=== PATIENT | male | born 1950 | race Caucasian/White ===

== ENCOUNTER → 2017-11-01 | Outpatient (CLI) | payer MEDICARE ==
--- NOTE | 2017-11-01 13:21 | XR ---
EXAMINATION TYPE: XR knee limited RT DATE OF EXAM: 11/01/2017 COMPARISON: NONE HISTORY: 67-year-old male with right knee pain TECHNIQUE: 2 views FINDINGS: Minimal nonspecific soft tissue calcifications are present along the anteromedial aspect of the knee. No acute fracture, subluxation, or dislocation. There is a small knee joint effusion noted. IMPRESSION: No acute osseous abnormality seen. There is a small knee joint effusion which is nonspeci fic. If concern for internal derangement, MRI can be considered.
== END | disposition home or self-care (01) ==
LOC: RADXRYALE 09:30
PROVIDERS: ATTEND Internal Medicine
DX: M25.462 Effusion, left knee (principal)

== ENCOUNTER → 2017-11-16 | Outpatient (CLI) | payer MEDICARE ==
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
== END | disposition home or self-care (01) ==
LOC: RADXRYALE 09:45
PROVIDERS: ATTEND Orthopaedic Surgery Sports Medicine
DX: Z18.10 Retained metal fragments, unspecified (principal); Z87.828 Personal history of other (healed) physical injury and trauma
CPT/HCPCS: 74019

== ENCOUNTER 2018-09-12 08:36 | Emergency (ER) | payer MEDICARE ==
[2018-09-12 08:42] VITALS: TEMP 97.1
[2018-09-12] MEDS ORDERED: KETOROLAC 60 MG/2 ML VIAL IM STA (08:59)
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
--- NOTE | 2018-09-12 10:04 | US ---
EXAMINATION TYPE: US venous doppler duplex LE LT DATE OF EXAM: 09/12/2018 9:52 AM COMPARISON: NONE CLINICAL HISTORY: Pain. Pain in left leg SIDE PERFORMED: Left TECHNIQUE: The lower extremity deep venous system is examined utilizing real time linear array sonog ivana with graded compression, doppler sonography and color-flow sonography. VESSELS IMAGED: External Iliac Vein (EIV) Common Femoral Vein Deep Femoral Vein Greater Saphenous Vein * Femoral Vein Popliteal Vein Small Saphenous Vein * Proximal Calf Veins (* superficial vessels) Left Leg: Negative for DVT IMPRESSION: 1. No diagnostic evidence of DVT as visualized.
[2018-09-12 10:29] VITALS: BP 148/72; PULSE 78; RESP 18
== END 2018-09-12 10:28 | disposition home or self-care (01) ==
LOC: EC 08:36
DX: S39.012A Strain of muscle, fascia and tendon of lower back, initial encounter (principal); M54.16 Radiculopathy, lumbar region; E78.5 Hyperlipidemia, unspecified; I10 Essential (primary) hypertension; Z85.828 Personal history of other malignant neoplasm of skin; Z79.891 Long term (current) use of opiate analgesic; Z79.1 Long term (current) use of non-steroidal anti-inflammatories (NSAID); Z79.899 Other long term (current) drug therapy
CPT/HCPCS: 72110; 93971; 99284; 96372; J1885